=== PATIENT | female | born 1960 | race Caucasian/White ===

== ENCOUNTER → 2016-09-07 16:41 | Outpatient (CLI) | payer BC ==
[2015-01-07 06:36] VITALS: BMI 29.3
[~2016-09-07 16:41] MED LIST: CALTRATE 600 M600 M1 PO; CYTOTEC; MULTIPLE VITAMI1 TA1 PO; STOOL SOFTENER240 MG PO; ZIAC 5-6.25 MG1 TAB PO; ZPAK PO
== END | disposition home or self-care (01) ==
LOC: D.MAMMO 09:45
DX: Z12.31 Encounter for screening mammogram for malignant neoplasm of breast (principal)

== ENCOUNTER 2017-08-04 08:28 | Day surgery (SDC) | payer BC ==
[2017-08-03 12:05] LABS: BASOPHILS 0.3 % (0-2); EOSINOPHILS 3.9 % (0-7); HEMATOCRIT 41.1 % (36.0-48.0); IMMATURE GRANULOCYTES 0.4 % (0-5); LYMPHOCYTES 36.1 % (15-50); MCH 29.9 pg (26.0-34.0); MCHC 34.1 g/dL (31.0-37.0); MCV 87.8 fL (80.0-100.0); MEAN PLATELET VOLUME 9.7 fL (7.4-10.4); MONOCYTES 7.5 % (2-11); NEUTROPHILS 51.8 % (40-80); PLATELET COUNT 263 10x3/uL (130-400); RBC 4.68 10x6/uL (4.00-5.40); RDW 13.2 % (11.5-14.5); WBC 7.5 10x3/uL (4.8-10.8)
[2017-08-03 12:22] LABS: ANION GAP 11.3 mmol/L (8-16); CALCIUM 9.1 mg/dL (8.5-10.1); CARBON DIOXIDE 28.9 mmol/L (21.0-32.0); CREATININE - SERUM 0.9 mg/dL (0.6-1.3); POTASSIUM - SERUM 4.2 mmol/L (3.5-5.1)
[~2017-08-04] VITALS: Ht 157.5 cm; Wt 77.6 kg
--- NOTE | ~2017-08-04 | OP ---
PATIENT NAME: SHUKRI BEVERLY MEDICAL RECORD: [id number] :64 LOCATION:[facility] ADMISSION DATE: SURGEON: SAUL GALAN MD DATE OF OPERATION: 08/04/2017 PREOPERATIVE DIAGNOSIS: Postmenopausal bleeding. POSTOPERATIVE DIAGNOSIS: Postmenopausal bleeding. PROCEDURE: Hysteroscopy with dilation and curettage. SURGEON: Saul Galan MD ANESTHESIOLOGIST: Dr. Gonzalez. ANESTHETIC: General. FINDINGS: Vaginal vaults unremarkable. Cervix is stenotic. The initial dilation with lacrimal duct dilators. The lining of the uterus is atrophic with a small polypoid lesion in the left anterior wall of the uterus. SPECIMENS REMOVED: Endometrial curettings. SPECIMEN DISPOSITION: Pathology. ESTIMATED BLOOD LOSS: Less than or equal to 25 cc. FLUIDS: 1 liter of lactated Ringer's. URINE OUTPUT: Quantity sufficient void prior to the procedure. DRAINS: None. COMPLICATIONS: None. INDICATIONS: The patient is a 57-year-old female with postmenopausal bleeding. Ultrasound with a thickened endometrial stripe. The patient desires a D&C, hysteroscopy. DESCRIPTION OF PROCEDURE: After informed consent was assured, the patient was taken to the operating room where anesthetic was obtained without difficulty. The patient was placed in stirrups and prepped and draped in the usual sterile fashion. An operative speculum was now introduced in the vagina and the cervix was grasped with a tenaculum and serially dilated to accommodate the diagnostic hysteroscope. This is passed to the lower body of the uterus and with sufficient pressure on the distention media the above findings were encountered. After visualization of the uterine cavity, the hysteroscopy was discontinued. The cervix was then serially dilated to accommodate a #2 curette. The curettage was passed to the fundus and good cry was obtained throughout. The specimen was passed off the field and given to the attendant. The single tooth tenaculum, which was used to steady the cervix during this procedure was removed and adequate hemostasis was noted. The patient was awakened and went to the recovery room in stable condition with sponge, lap, and needle counts correct times 2. OPERATIVE REPORT [id number] SHUKRI BEVERLY TRANSINT:[id number] Voice Confirmation ID: [id number] DOCUMENT ID: [id number] SAUL GALAN MD at 1217 CC: [id number] DICTATION DATE: 08/04/17 1029 SUGAR GRINDER: 08/04/17 1101 [facility] 08/04/17 [place] [id number] [place] [id number]
[2017-08-04 07:15] VITALS: BP 117/72; Ht 157.5 cm; Wt 77.6 kg
[~2017-08-04 08:28] MED LIST changes: +ADIPEX-P37.5 M1 PO; +BENADRYL25 MG PO; +LIPITOR10 MG PO
== END 2017-08-04 12:25 | disposition home or self-care (01) ==
LOC: D.OPS 08:28
PROVIDERS: Anesthesiology; Obstetrics & Gynecology
DX: N95.0 Postmenopausal bleeding (principal); N88.2 Stricture and stenosis of cervix uteri; Z01.812 Encounter for preprocedural laboratory examination; R93.8 Abnormal findings on diagnostic imaging of other specified body structures

== ENCOUNTER 2017-08-19 16:15 | Outpatient (CLI) | payer BC ==
[2017-08-04 07:15] VITALS: BMI 31.3
== END 2017-08-19 16:30 ==
LOC: D.MAMMO 16:15
DX: Z12.31 Encounter for screening mammogram for malignant neoplasm of breast (principal)

== ENCOUNTER 2018-09-02 08:00 | Outpatient (CLI) | payer BC ==
[2017-08-04 07:15] VITALS: BMI 31.3
== END 2018-09-02 23:59 | disposition home or self-care (01) ==
LOC: D.MAMMO 08:00
PROVIDERS: ATTEND Family Medicine
DX: Z12.31 Encounter for screening mammogram for malignant neoplasm of breast (principal)

== ENCOUNTER → 2019-09-05 23:52 | Outpatient (CLI) | payer BC ==
[2017-08-04 07:15] VITALS: BMI 31.3
== END | disposition home or self-care (01) ==
LOC: D.MAMMO 16:15
PROVIDERS: ATTEND Family Medicine
DX: Z12.31 Encounter for screening mammogram for malignant neoplasm of breast (principal)

== ENCOUNTER → 2019-09-25 16:00 | Outpatient (CLI) | payer BC ==
[2017-08-04 07:15] VITALS: BMI 31.3
== END ==
LOC: D.MAMMO 14:30
PROVIDERS: ATTEND Family Medicine
DX: R92.8 Other abnormal and inconclusive findings on diagnostic imaging of breast (principal)